=== PATIENT | male | born 1980 | race Caucasian/White ===

== ENCOUNTER 2019-03-15 15:35 | Emergency (ER) | payer OTHER ==
[~2019-03-15] VITALS: Wt 74.8 kg
[2019-03-15] MEDS ORDERED: CYCLOBENZAPRINE5 M3 PO (17:18)
== END 2019-03-15 17:28 | disposition home or self-care (01) ==
LOC: ED 15:35
DX: S60.222A Contusion of left hand, initial encounter (principal); S09.90XA Unspecified injury of head, initial encounter; V43.52XA Car driver injured in collision with other type car in traffic accident, initial encounter; Y93.89 Activity, other specified; Y92.413 State road as the place of occurrence of the external cause; Y99.8 Other external cause status

== ENCOUNTER 2020-07-21 16:31 | Emergency (ER) | payer OTHER, BC ==
[~2020-07-21] VITALS: Ht 185.4 cm; Wt 77.1 kg
[~2020-07-21 16:31] MED LIST: CYCLOBENZAPRINE5 M3 PO
== END 2020-07-21 17:20 | disposition home or self-care (01) ==
LOC: ED 16:31
DX: S06.0X9A Concussion with loss of consciousness of unspecified duration, initial encounter (principal); Z79.899 Other long term (current) drug therapy; X58.XXXA Exposure to other specified factors, initial encounter; Y93.89 Activity, other specified; Y92.89 Other specified places as the place of occurrence of the external cause; Y99.8 Other external cause status